=== PATIENT | male | born 2000 | race Two or more races ===

== ENCOUNTER 2024-07-31 13:45 | Emergency (ER) | payer OTHER ==
[~2024-07-31] VITALS: Ht 170.2 cm; Wt 106.6 kg
[2024-07-31] MEDS ORDERED: PAXIL20 MG (13:47)
[2024-07-31] MEDS ORDERED: LAMOTRIGINE25 M3 (13:47)
[2024-07-31 13:48] VITALS: BP 119/77; O2SAT 96
[2024-07-31] MEDS ORDERED: IBU600 MG PO (19:38)
== END 2024-07-31 19:43 | disposition home or self-care (01) ==
LOC: ER 13:47
DX: S60.051A Contusion of right little finger without damage to nail, initial encounter (principal); W19.XXXA Unspecified fall, initial encounter; Y93.9 Activity, unspecified; Y92.89 Other specified places as the place of occurrence of the external cause; Y99.9 Unspecified external cause status; Z87.09 Personal history of other diseases of the respiratory system

== ENCOUNTER 2025-05-04 09:37 | Emergency (ER) | payer OTHER ==
[~2025-05-04] VITALS: Ht 170.2 cm; Wt 97.5 kg
[~2025-05-04 09:37] MED LIST: BUSPIRONE HCL7.5 MG PO; IBU600 MG PO; LAMOTRIGINE25 M3; PAXIL20 MG
[2025-05-04] MEDS ORDERED: 0.9 % SODIUM CHLORIDE 1,000 ML IV ONE (11:00)
[2025-05-04] MEDS ORDERED: FAMOTIDINE/PF 20 MG/2 ML VIAL IV ONE (11:00)
[2025-05-04] MEDS ORDERED: ONDANSETRON HCL 2 MG/ML VIAL IV ONE (11:00)
[2025-05-04 12:16] LABS: BASO % 0.3 % (0.1-1.2); EOS # 0.02 (0.04-0.54); EOS % 0.2 % (0.7-7.0); LYMPH # 0.80 (1.18-3.74); LYMPH % 6.6 % (19.3-53.1); MEAN PLATELET VOLUME 9.30 fl (9.4-12.4); MONO # 0.40 (0.24-0.82); MONO % 3.3 % (4.7-12.5); NEUT # 10.89 (1.56-6.13); NEUT % 89.4 % (34.0-71.1); RED CELL DISTRIBUTION WIDTH 13.2 % (11.6-14.4)
[2025-05-04 12:33] LABS: ALT/SGPT 54.0 U/L (12-78); AST/SGOT 22.0 U/L (15-37); BILIRUBIN TOTAL 0.74 mg/dL (0.3-1.2); BUN CREA RATIO 16.0 (7.0-25.0); CREATININE SERUM 1.28 mg/dL (0.70-1.30); GFR 70.27; GLOBULINA 3.8 G/DL (2.4-3.5); GLUCOSE FASTING 131.0 mg/dL (65-100); OSMOLALITY SERUM 288.0 MOSM/KG (275-295)
[2025-05-04 13:37] LABS: COVID-19 AG NEGATIVE (NEGATIVE)
[2025-05-04] MEDS ORDERED: ZOFRAN8 MG SL (15:51)
[2025-05-04] MEDS ORDERED: PEPCID AC10 MG PO (15:51)
[2025-05-04] MEDS ORDERED: KETOCONAZOLE15 GM TOP (15:51)
[2025-05-04] MEDS ORDERED: LEVSIN0.125 MG PO (15:51)
== END 2025-05-04 18:03 | disposition home or self-care (01) ==
LOC: ER 09:37
PROVIDERS: General Practice
DX: K52.89 Other specified noninfective gastroenteritis and colitis (principal); B36.0 Pityriasis versicolor; K30 Functional dyspepsia; Z20.822 Contact with and (suspected) exposure to COVID-19

== ENCOUNTER 2025-07-06 11:36 | Emergency (ER) | payer OTHER ==
[~2025-07-06] VITALS: Ht 170.2 cm; Wt 95.3 kg
[~2025-07-06 11:36] MED LIST changes: +KETOCONAZOLE15 GM TOP; +LEVSIN0.125 MG PO; +PEPCID AC10 MG PO; +ZOFRAN8 MG SL
[2025-07-06] MEDS ORDERED: PROAIR RESPICL90 MCG IH ×2 (13:56→17:41)
[2025-07-06] MEDS ORDERED: VERIPRED 220 MG/5 ML PO (13:56)
[2025-07-06] MEDS ORDERED: BENZONATATE200 M1 PO (13:57)
[2025-07-06] MEDS ORDERED: AZITHROMYCIN 500 MG VIAL IV ONE (15:45)
[2025-07-06] MEDS ORDERED: METHYLPREDNISOLONE SOD SUCC 125 MG VIAL IV ONE (15:45)
[2025-07-06] MEDS ORDERED: 0.9 % SODIUM CHLORIDE 1,000 ML IV ONE (15:45)
[2025-07-06] MEDS ORDERED: ALBUTEROL SULFATE 3 ML/2.5 MG AMPUL.NEB IH SCH (15:45)
[2025-07-06] MEDS ORDERED: IPRATROPIUM BROMIDE 0.5 MG/2.5 ML AMPUL.NEB IH ONE (15:45)
[2025-07-06 16:25] LABS: BASO % 0.3 % (0.1-1.2); EOS # 0.01 (0.04-0.54); EOS % 0.1 % (0.7-7.0); LYMPH # 1.34 (1.18-3.74); LYMPH % 10.3 % (19.3-53.1); MEAN PLATELET VOLUME 9.70 fl (9.4-12.4); MONO # 0.99 (0.24-0.82); MONO % 7.6 % (4.7-12.5); NEUT # 10.52 (1.56-6.13); NEUT % 81.3 % (34.0-71.1); RED CELL DISTRIBUTION WIDTH 13.5 % (11.6-14.4)
[2025-07-06 16:42] LABS: ERYTHROCYTE SEDIMENTATION RATE 14 mm/hr (0-15)
[2025-07-06 16:44] LABS: COVID-19 AG NEGATIVE (NEGATIVE)
[2025-07-06 17:16] LABS: ALT/SGPT 28.0 U/L (12-78); AST/SGOT 8.0 U/L (15-37); BILIRUBIN TOTAL 0.48 mg/dL (0.3-1.2); BUN CREA RATIO 11.0 (7.0-25.0); CREATININE SERUM 1.23 mg/dL (0.70-1.30); GFR 72.92; GLOBULINA 3.2 G/DL (2.4-3.5); GLUCOSE FASTING 112.0 mg/dL (65-100); OSMOLALITY SERUM 286.0 MOSM/KG (275-295)
[2025-07-06] MEDS ORDERED: MEDROLPACK PO (17:41)
[2025-07-06] MEDS ORDERED: ZITHROMAX200 MG PO (17:41)
[2025-07-06] MEDS ORDERED: ALBUTEROL1.25 MG/3 IH (17:41)
[2025-07-06] MEDS ORDERED: BENZONATATE100 MG PO (17:41)
== END 2025-07-06 19:17 | disposition home or self-care (01) ==
LOC: ER 11:36
DX: J45.998 Other asthma (principal); Z20.822 Contact with and (suspected) exposure to COVID-19